=== PATIENT | male | born 1945 | race Caucasian/White ===

== ENCOUNTER 2020-01-12 06:51 | Day surgery (SDC) | payer BC ==
[2020-01-05 12:53] VITALS: BMI 29.5
[~2020-01-12 06:51] MED LIST: LIDOCAINE HCL 2% (50ML VIAL) INF ONE
[2020-01-12] MEDS ORDERED: MIDAZOLAM HCL 2 MG/2 ML SINGLE DOSE VIAL ONE ×2 (07:59)
[2020-01-12] MEDS ORDERED: PROPOFOL 20 ML ONE ×3 (08:00→08:32)
[2020-01-12] MEDS ORDERED: LIDOCAINE HCL/PF 2% SDV 5ML VIAL ONE (08:23)
[2020-01-12] MEDS ORDERED: LIDOCAINE HCL 2% (50ML VIAL) INF ONE (08:29)
[2020-01-12] MEDS ORDERED: KETOROLAC TROMETHAMINE 30 MG/1 ML VIAL ONE (08:38)
[2020-01-12] MEDS ORDERED: DEXAMETHASONE SOD PHOSPHATE 4 MG/1 ML VIAL ONE (08:38)
[2020-01-12] MEDS ORDERED: ONDANSETRON 4 MG/2 ML VIAL ONE (08:38)
[2020-01-12 09:04] VITALS: TEMP 97.8
--- NOTE | 2020-01-12 09:26 | OP ---
DATE OF OPERATION: 01/12/2020 PREOPERATIVE DIAGNOSIS: Right carpal tunnel syndrome. POSTOPERATIVE DIAGNOSIS: Right carpal tunnel syndrome. OPERATIVE PROCEDURE: Right carpal tunnel release. ANESTHESIA: Local with sedation. COMPLICATIONS: None. ESTIMATED BLOOD LOSS: Minimal. INDICATIONS FOR PROCEDURE: The patient is a 74-year-old male with the above finding indicated for operative treatment. Risks, benefits and alternatives were discussed with the patient at length. Proper informed consent was obtained. PROCEDURE: After proper identification of patient and correct operative site, patient was brought to the operating room, placed supine on the operating table. All bony prominences were well padded. Sedation and local anesthesia were given. Right upper extremity was prepped and draped in the usual sterile fashion. Well-padded tourniquet was placed over a sterile prep. Esmarch bandage was used to exsanguinate right upper extremity. Tourniquet was inflated to 250 mmHg. Longitudinal incision was made in the proximal aspect of the palm. Incision was taken sharply through the skin with blunt and sharp through subcutaneous tissues. Palmar fascia was divided longitudinally. Transcarpal ligament was divided longitudinally along with the distal 4 cm of the antebrachial fascia under direct visualization with loupe magnification. This provided complete release of the median nerve at the wrist. Wound was irrigated and repaired with 5-0 fast-absorbing plain gut suture as well as Dermabond. Sterile dressings were applied. Patient was brought to recovery in stable condition. He tolerated the procedure well. TAMMY KEENAN M.D. [id number]
[2020-01-12 09:49] VITALS: BP 114/72; PULSE 72
== END 2020-01-12 10:08 | disposition home or self-care (01) ==
LOC: FASU 06:51
PROVIDERS: ATTEND Orthopaedic Surgery Hand Surgery
PROC: 01N50ZZ Release Median Nerve, Open Approach (ICD-10-PCS; principal; 2020-01-12 08:31)
DX: G56.01 Carpal tunnel syndrome, right upper limb (principal)